=== PATIENT | female | born 1965 | race Caucasian/White ===

== ENCOUNTER → 2024-03-15 12:11 | Outpatient (REF) | payer OTHER, SELFPAY | LOC: HWWDC 12:11 | PROVIDERS: ATTENDING PHYSICIAN Obstetrics & Gynecology; FAMILY PHYSICIAN Internal Medicine | DX: Z12.31 Encounter for screening mammogram for malignant neoplasm of breast (principal) | CPT/HCPCS: 77063; 77067 ==

== ENCOUNTER → 2024-04-28 13:15 | Outpatient (REF) | payer OTHER, SELFPAY | LOC: HWRAD 13:15 | PROVIDERS: ATTENDING PHYSICIAN Internal Medicine Rheumatology; FAMILY PHYSICIAN Internal Medicine | DX: M81.0 Age-related osteoporosis without current pathological fracture (principal) | CPT/HCPCS: 77080 ==

== ENCOUNTER 2025-02-23 08:06 | Emergency (ER) | payer OTHER, SELFPAY ==
[2025-02-23 08:10] VITALS: BP 148/96
[2025-02-23 08:27] VITALS: BP 138/93
--- NOTE | 2025-02-23 08:53 | ED.GENMED ---
History of Present Illness
<Peace Urrutia MD - Last Filed: 02/23/25 11:56>
General
Chief Complaint: Chest Pain
Time Seen by Provider: 02/23/25 08:30
<Imelda Locke DO, Resident - Last Filed: 02/23/25 12:11>
General
Source: patient
Exam Limitations: none
Nursing documentation reviewed up to this point in time: agreed with
History of Present Illness
History of Present Illness:
Patient is a 59 year old female with PMH of ulcerative colitis and HTN, presenting with heart palpitations and chest discomfort that started last night. Patient has been on Inflectra for UC for 10 years. Recently, patient started experiencing muscle
weakness, joint pain and overall soreness. Patient follows with [facility]. Patient stopped Inflectra and started on Medrol dose pack 6 days ago. 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 Patient being worked up for possible
serum sickness vs. drug induced lupus. Last night patient started to have chest discomfort and heart palpitations before bed. Patient describes the chest discomfort as heavy and all over chest. Does not radiate to arms or back. Patient endorses SOB
last night but not now. Patient took 1/2 an Advil this morning and feels like it improved her symptoms. Patient does note that she has been having heart palpitations in the middle of the night for the last 6 months, relieved by urination. Patient
takes lisinopril irregularly, only when she thinks her BP is elevated. Patient takes Xanax at night to sleep.
Past History
<Peace Urrutia MD - Last Filed: 02/23/25 11:56>
Past History
ED Past Surgical History: Other
<Imelda Locke DO, Resident - Last Filed: 02/23/25 12:11>
Past History
ED Past Medical History: HTN and Other (Ulcerative colitis)
ED Past Surgical History: None
Social History
Tobacco: Non-smoker
Alcohol: None
Drug: None
Personal:
Living: with family
Employment: Not employed
Family History
Family History: Other (stroke father)
Review of Systems
<Peace Urrutia MD - Last Filed: 02/23/25 11:56>
Review of Systems
All Other Systems: ROS reviewed and negative except as documented in HPI and ROS
<Imelda Locke DO, Resident - Last Filed: 02/23/25 12:11>
Review of Systems
Allergies reviewed?: Yes
Constitutional: Reports no symptoms
EENT: Reports no symptoms
Respiratory: Reports no symptoms
Cardiac: Reports chest pain and palpitations
ABD/GI: Reports no symptoms
: Reports no symptoms
Musculoskeletal: Reports joint pain, joint swelling, muscle pain and muscle stiffness
Skin: Reports no symptoms
Neurological: Reports no symptoms
Endocrine: Reports no symptoms
Hematologic/Lymphatic: Reports no symptoms
Psychiatric: Reports no symptoms
Phy Exam
<Peace Urrutia MD - Last Filed: 02/23/25 11:56>
Physical Exam
Physical Exam:
Physical Exam
General: no apparent distress, not acutely ill. Patient appears well, comfortable, smiling
Neck: supple. no meningeal signs. normal psoterior pharynx
Heart: s1/s2 regular rate and rhythm, no murmur. equal radial pulses.
Lungs: no acute respiratory distress. clear bilaterally
Abdomen: normal bowel sounds. not tender. no CVAT
Neuro: alert and oriented. no focal neurological deficits
Skin: no rash
Psychiatric: well kept. interactive and cooperative
Extremities: no edema. no calf tenderness. negative homans. good distal pulses
<Imelda Locke DO, Resident - Last Filed: 02/23/25 12:11>
General Physical Exam
General Presentation: well appearing and no apparent distress
General age: appears stated age
General Skin: warm and dry
General Habitus: normal
General Mental: alert
General Hydration: appears well hydrated
Cardiovascular Exam
Cardiovascular Exam: regular rate/rhythm
Heart Sounds: normal
Pulmonary Exam
Pulmonary Exam: lungs clear, no respiratory distress, chest non tender, no crackles, no wheezing and no cough
Oxygen Status: room air
Cough: no cough
Gastrointestinal Exam
Gastrointestinal Exam: normal bowel sounds, non tender and soft
Neurological Exam
Neurological Exam: alert and oriented x3
Scores
<Peace Urrutia MD - Last Filed: 02/23/25 11:56>
Heart Score for Chest Pain Patients
STEMI patient?: No
History: Slightly or Non-Suspicious
ECG: Normal
Age: >45 - <65 years
Risk Factors: 1 or 2 Risk Factors
Troponin: </= Normal Limit
Heart Score for Chest Pain Patients: 2
Heart Score Risk: 2.5% MACE over next 6 weeks
<Imelda Locke DO, Resident - Last Filed: 02/23/25 12:11>
Heart Score for Chest Pain Patients
Heart Score for Chest Pain Patients: 2
Heart Score Risk: 2.5% MACE over next 6 weeks
Course
<Peace Urrutia MD - Last Filed: 02/23/25 11:56>
Orders/Labs/Results
Orders:
Orders
02/23/25 08:07
Electrocardiogram (*1) Urgent
Reason for Study: Chest Pain
EKG- Treatment ONCE
02/23/25 09:33
Complete Blood Count/With Diff Urgent
Comprehensive Metabolic Panel Urgent
Troponin I Urgent
Urinalysis Reflex To Culture Urgent
Date Specimen was Collected: 02/23/25
Time Specimen was Collected: 09:17
Urine Microscopic Reflex Cult Urgent
02/23/25 09:34
D-Dimer Urgent
TSH Reflex To Free T4 Urgent
02/23/25 10:43
CR Chest - 2 Views Urgent
Comment:
Reason For Exam: CP
Abnormal Lab Results
02/23/25 02/23/25
09:33 09:34
RBC 3.96 L 10^6/uL
(4.20-5.40)
Hct 36.5 L %
(37.0-47.0)
MCH 31.1 H pg
(27.0-31.0)
Absolute Lymphs (auto) 4.0 H 10^3/uL
(1.2-3.4)
Absolute Monos (auto) 0.7 H 10^3/uL
(0.1-0.6)
D-Dimer 0.58 H ug/mlFEU
(0.00-0.50)
BUN 20 H mg/dl
(7-17)
Alkaline Phosphatase 29 L U/L
(38-126)
Ur Occult Blood Reflex 1+ A
(Negative)
02/23/25 09:33
02/23/25 09:33
Vital Signs
Initial and Last Documented VS:
Initial Vital Signs
Temp Pulse Resp BP Pulse Ox
97.8 F 58 16 148/96 98
02/23/25 08:10 02/23/25 08:10 02/23/25 08:10 02/23/25 08:10 02/23/25 08:10
Last Documented Vital Signs
Temp Pulse Resp BP Pulse Ox
97.8 F 76 21 135/78 92
02/23/25 08:10 02/23/25 10:45 02/23/25 10:45 02/23/25 10:00 02/23/25 10:45
<Imelda Locke DO, Resident - Last Filed: 02/23/25 12:11>
Orders/Labs/Results
Orders:
Orders
02/23/25 08:07
Electrocardiogram (*1) Urgent
Reason for Study: Chest Pain
EKG- Treatment ONCE
02/23/25 09:33
Complete Blood Count/With Diff Urgent
Comprehensive Metabolic Panel Urgent
Troponin I Urgent
Urinalysis Reflex To Culture Urgent
Date Specimen was Collected: 02/23/25
Time Specimen was Collected: 09:17
Urine Microscopic Reflex Cult Urgent
02/23/25 09:34
D-Dimer Urgent
TSH Reflex To Free T4 Urgent
02/23/25 10:43
CR Chest - 2 Views Urgent
Comment:
Reason For Exam: CP
Abnormal Lab Results
02/23/25 02/23/25
09:33 09:34
RBC 3.96 L 10^6/uL
(4.20-5.40)
Hct 36.5 L %
(37.0-47.0)
MCH 31.1 H pg
(27.0-31.0)
Absolute Lymphs (auto) 4.0 H 10^3/uL
(1.2-3.4)
Absolute Monos (auto) 0.7 H 10^3/uL
(0.1-0.6)
D-Dimer 0.58 H ug/mlFEU
(0.00-0.50)
BUN 20 H mg/dl
(7-17)
Alkaline Phosphatase 29 L U/L
(38-126)
Ur Occult Blood Reflex 1+ A
(Negative)
02/23/25 09:33
02/23/25 09:33
Vital Signs
Initial and Last Documented VS:
Initial Vital Signs
Temp Pulse Resp BP Pulse Ox
97.8 F 58 16 148/96 98
02/23/25 08:10 02/23/25 08:10 02/23/25 08:10 02/23/25 08:10 02/23/25 08:10
Last Documented Vital Signs
Temp Pulse Resp BP Pulse Ox
97.8 F 76 21 135/78 92
02/23/25 08:10 02/23/25 10:45 02/23/25 10:45 02/23/25 10:00 02/23/25 10:45
<Peace Urrutia MD - Last Filed: 02/23/25 11:56>
MDM/Problems Addressed
Differential Diagnosis Includes:
Acute coronary syndrome, pleurisy, PE, pneumonia
MDM/Problems Addressed:
Patient presents with subacute palpitations and acute chest pain
Chronic conditions affecting care: HTN
Acute Exacerbation and/or Progression of Chronic Illness:
Patient is acutely hypertensive, however, she reports she does not take her blood pressure medicine every day. However, overall it is just slightly elevated in the ED. There is no sign clinically of CHF or any neurological abnormalities
Acute Exacerbation and/or Progression of Chronic Illness: HTN
<Peace Urrutia MD - Last Filed: 02/23/25 11:56>
*Radiology
Radiology exam reviewed: preliminary read by ED provider (Chest x-ray reviewed by me. No acute disease)
*EKG
Interpreted by ED Provider?: Yes
Interpretation: normal
Comparison EKG: no changes
Rate: normal
Rhythm: sinus
[place]: left axis deviation
Interval: normal interval
QRS Pattern: normal QRS
Ischemia: no ischemia
*Plastic Sewer Interpretation
Rate: normal
Interpretation: normal
Rhythm: sinus
Data Reviewed
Review of Other/Old Records Reveals: Radiology Studies (Chest x-ray done 2022 shows no acute disease)
Source: patient
<Imelda Locke DO, Resident - Last Filed: 02/23/25 12:11>
*Pulse Oximetry
SaO2: 98
Oxygen Mode of Delivery: Room air
Patient hypoxic: no
*Critical Care Note
Total Time (30-74mins, 75-104mins- exclusive of procedures): Not Applicable
<Peace Urrutia MD - Last Filed: 02/23/25 11:56>
Update Note
Update Note:
Patient's D-dimer is 0.58 which for an age-adjusted 59-year-old, is less than 0.6, which is in normal range for her age
Patient looks extremely well and comfortable. I suspect her pain is musculoskeletal/inflammatory in etiology. There is no sign of tachycardia or heart block. EKG is normal. Troponin is normal therefore it is doubtful to be ACS
ED Attending Note
<Imelda Locke DO, Resident - Last Filed: 02/23/25 12:11>
-
Portions of this chart may have been created with voice recognition software.� Occasional wrong word or��sound alike� substitutions may have occurred due to the inherent limitations of voice recognition software.
Discharge Plan
Departure
Patient Disposition: Home (Routine Discharge)
Date of Disposition: 02/23/25
Time of Disposition: 11:54
Patient with high blood pressure during this ER visit?: Yes
Condition: Good
Covid-19: Not Applicable
Discharge Problem:
Chest pain
Instructions: Chest Pain PCP Follow Up
Prescriptions:
No Action
mesalamine [Canasa] 500 MG suppository
500 mg MD HS
alprazolam 0.5 MG tablet
1 tab PO HS
L.acidoph,paracasei,B.animalis 1 EACH capsule
1 ea PO DAILY
hydrocortisone 1 APPLIC cream
1 applic topical BID PRN (Reason: skin rash)
cholecalciferol (vitamin D3) [Vitamin D3] 400 UNITS tablet
400 units PO DAILY
Referrals:
Leanne Lloyd DO [Family Provider, Internal Medicine]
Activity Restrictions/Additional Instructions:
Follow-up with your reporting analyst as scheduled
Please take 600 mg of Advil every 6-8 hours with food for pain.
Interventions
Interventions:
*Risk Screen - Suicide Last Done: 02/23/25 09:09
*General Assessment Last Done: 02/23/25 09:09
*Neglect/Abuse Screening Last Done: 02/23/25 09:09
*ED- Fall Risk Assessment Last Done: 02/23/25 09:09
*ED COVID-19 Vaccine History Last Done: 02/23/25 09:09
ED- Cardiac Assessment Last Done: 02/23/25 09:09
Discharge Date and Time
Print Language: VIET[place]ESE
[2025-02-23 09:00] VITALS: BP 135/77
[2025-02-23 09:09] VITALS: BMI 24.6
[2025-02-23 09:45] LABS: Hematocrit 36.5 % (37.0-47.0); Hemoglobin 12.3 g/dL (12.0-16.0); Mean Corp Hgb Conc. 33.7 g/dL (33.0-37.0); Mean Corpuscular Volume 92.2 fL (81.0-99.0); Nucleated Red Blood Cells % 0 %; Platelet Count 241 10^3/uL (130-400); Red Cell Dist. Width 12.3 % (11.5-14.5)
[2025-02-23 09:48] LABS: Urine Character Clear (Clear)
[2025-02-23 10:00] VITALS: BP 135/78
[2025-02-23 10:06] LABS: Urine Urothelial Cell 0-2 /LPF (FEW)
[2025-02-23 10:08] LABS: ALT (SGPT) 16 U/L (0-35); AST (SGOT) 15 U/L (14-36); Albumin 4.2 g/dl (3.5-5.0); Alkaline Phosphatase 29 U/L (38-126); Blood Urea Nitrogen 20 mg/dl (7-17); Calcium 9.9 mg/dl (8.4-10.2); Carbon Dioxide 25 mmol/L (22-30); Chloride 107 mmol/L (98-107); Estimated Creatinine Clearance 74 ml/min; Glucose 88 mg/dl (70-99); Potassium 3.8 mmol/L (3.5-5.1); Sodium 138 mmol/L (135-145); Total Protein 6.9 g/dl (6.3-8.2); eGFR > 60.00
[2025-02-23 10:09] LABS: Urine Red Blood Cell 0-2 /HPF (0-2)
[2025-02-23 10:26] LABS: D-Dimer 0.58 ug/mlFEU (0.00-0.50)
[2025-02-23 10:41] LABS: Troponin I < 0.012 ng/ml
[2025-02-23 11:00] VITALS: BP 130/70
== END 2025-02-23 12:39 | disposition home or self-care (01) ==
LOC: EMR 08:06
PROVIDERS: EMERGENCY PHYSICIAN Emergency Medicine; FAMILY PHYSICIAN Internal Medicine
DX: R07.9 Chest pain, unspecified (principal); I10 Essential (primary) hypertension; K51.90 Ulcerative colitis, unspecified, without complications; T46.4X6A Underdosing of angiotensin-converting-enzyme inhibitors, initial encounter; Z91.128 Patient's intentional underdosing of medication regimen for other reason; Z82.3 Family history of stroke
CPT/HCPCS: 99284; 71046; 80053; 81003; 81015; 84443; 84484; 85025; 85379; 93005

== ENCOUNTER → 2025-05-01 13:34 | Outpatient (REF) | payer OTHER, SELFPAY | LOC: WDC 13:34 | PROVIDERS: ATTENDING PHYSICIAN Obstetrics & Gynecology; FAMILY PHYSICIAN Internal Medicine | DX: Z12.31 Encounter for screening mammogram for malignant neoplasm of breast (principal) | CPT/HCPCS: 77063; 77067 ==

== ENCOUNTER 2025-06-18 20:17 | Emergency (ER) | payer OTHER, SELFPAY ==
[2025-06-18 20:19] VITALS: BP 143/89
--- NOTE | 2025-06-18 23:08 | ED.GENMED ---
History of Present Illness
General
Chief Complaint: Back Pain
Source: patient and spouse
Exam Limitations: none
Time Seen by Provider: 06/18/25 22:56
Nursing documentation reviewed up to this point in time: agreed with
History of Present Illness
History of Present Illness:
60-year-old female with past medical history as noted presents to the emergency department for evaluation of back pain. Patient reports that she has been dealing with 'sciatica' off and on chronically. She says that recently symptoms have been
flaring up more than usual with some shooting pains in the back and right leg. She says that today she reached up above her head to take a shower curtain down and shortly thereafter developed severe pain in the right low back that has been
radiating down the right leg. Worse with movement, worse with the leg straight. No relieving factors noted. She denies any weakness or numbness in the legs. She denies any bowel or bladder incontinence. Denies saddle anesthesia. She denies any
other acute complaints.
Past History
Past History
ED Past Medical History: HTN and Other (Ulcerative colitis)
ED Past Surgical History: Other
Social History
Tobacco: Non-smoker
Alcohol: None
Drug: None
Personal:
Living: with family
Employment: Not employed
Family History
Family History: Other (stroke father)
Review of Systems
Review of Systems
All Other Systems: ROS reviewed and negative except as documented in HPI and ROS
Constitutional: Denies fever
Respiratory: Denies trouble breathing
Cardiac: Denies chest pain
ABD/GI: Denies abdominal pain
Musculoskeletal: Reports back pain; Denies neck pain
Neurological: Denies dizzy, headache, weakness or numbness
Phy Exam
Physical Exam
Physical Exam:
General: Awake, alert, oriented x3; appears uncomfortable
Head: Normocephalic, atraumatic
Eyes: Conjunctiva normal
Throat: Airway intact
Neck: Trachea midline, supple without meningismus
Lungs: Breathing comfortably with no distress
Heart: Regular rate
Back: No spinal step-offs, moderate tenderness of the paraspinal region upper lumbar L1-L2; positive straight leg raise right leg
Neuro: Cranial nerves grossly intact, speech fluid; motor and sensory intact distal lower extremities bilaterally
Skin: No rash in the area of concern
Extremities: No edema in extremities, warm and well-perfused
Scores
Heart Failure Risk
Heart Failure Risk Score: Not Applicable
Heart Score for Chest Pain Patients
STEMI patient?: Not applicable
Withdrawal Assessment of Alcohol
Withdrawal Assessment Completed?: Not applicable
Course
Orders/Labs/Results
Orders:
Orders
06/18/25 23:07
Ketorolac [Toradol] 30 mg IM NOW STA
Oxycodone [Roxicodone] 5 mg PO NOW STA
Prednisone [Deltasone] 50 mg PO NOW STA
06/18/25 23:08
CR Lumbar Spine 2 Or 3 Views Urgent
Comment:
Reason For Exam: low back pain
Vital Signs
Initial and Last Documented VS:
Initial Vital Signs
Temp Pulse Resp BP Pulse Ox
36.7 C 79 19 143/89 99
06/18/25 20:19 06/18/25 20:19 06/18/25 20:19 06/18/25 20:19 06/18/25 20:19
Last Documented Vital Signs
Temp Pulse Resp BP Pulse Ox
36.7 C 79 19 143/89 99
06/18/25 20:19 06/18/25 20:19 06/18/25 20:19 06/18/25 20:19 06/18/25 23:08
MDM/Problems Addressed
Differential Diagnosis Includes:
Bulging/herniated disc, degenerative disc disease, less likely fracture, less likely cancer
MDM/Problems Addressed:
60-year-old female presents with acute on chronic low back pain with radicular symptoms down the right leg. Flared up after reaching above her head today. Vitals and exam as above. Her clinical picture is consistent with lumbar
radiculopathy/sciatica. Given her age with no prior imaging will check x-ray lumbar spine. No red flag symptoms or exam findings to suggest cauda equina, no indication for emergent MRI. Will plan to treat symptomatically. Reassess after the
above.
X-ray reviewed by me shows no acute abnormality. Clinical reassessment after medication here patient is still in pain but reports some improvement. She is requesting discharge and will follow-up with orthopedist on an outpatient basis. We spoke
about pain control measures at home. Will prescribe steroid taper. Given that her pain was so severe that it did not respond to Tylenol and ibuprofen will prescribe short prescription of opiates pending follow-up. All questions answered.
*Radiology
Radiology exam reviewed: preliminary read by ED provider
*Pulse Oximetry
SaO2: 99
Oxygen Mode of Delivery: Room air
Patient hypoxic: no (99%)
*Critical Care Note
Total Time (30-74mins, 75-104mins- exclusive of procedures): Not Applicable
Data Reviewed
Source: patient and spouse
ED Attending Note
-
Portions of this chart may have been created with voice recognition software.� Occasional wrong word or��sound alike� substitutions may have occurred due to the inherent limitations of voice recognition software.
Discharge Plan
Departure
Patient Disposition: Home (Routine Discharge)
Date of Disposition: 06/19/25
Time of Disposition: 00:33
Patient with high blood pressure during this ER visit?: Yes
Discharge Problem:
Acute low back pain with sciatica
Instructions: Low Back Pain (DC), Sciatica (DC)
Prescriptions:
New
oxycodone 5 mg tablet
5 mg PO Q6H PRN (Reason: Pain) Qty: 14 0RF
prednisone 10 mg Tablet
See Rx Instructions .ROUTE .COMPLEX Qty: 45 0RF
Rx Instructions:
Take By Mouth:
50 mg daily x3 days, 40 mg daily x3 days,
30 mg daily x3 days, 20 mg daily x3 days,
10 mg daily x3 days
No Action
mesalamine [Canasa] 500 MG suppository
500 mg HI HS
alprazolam 0.5 MG tablet
1 tab PO HS
L.acidoph,paracasei,B.animalis 1 EACH capsule
1 ea PO DAILY
hydrocortisone 1 APPLIC cream
1 applic topical BID PRN (Reason: skin rash)
cholecalciferol (vitamin D3) [Vitamin D3] 400 UNITS tablet
400 units PO DAILY
Referrals:
Leanne Lloyd DO [Family Provider, Internal Medicine]
Garrett Alejandro MD [Active, Orthopedics] - Call in 1-3 days for appt
Activity Restrictions/Additional Instructions:
Thank you for visiting the Emergency Department at [facility].
1. Please schedule a follow up appointment as directed. Call first thing tomorrow morning to make an appointment.
2. If indicated, please take your medications as instructed and indicated on discharge paperwork.
3. If any of your symptoms do not improve, or persist, or become more severe within 6-12 hours, please return to the emergency department for further care.
4. Please return to the emergency department if you develop a headache, neck pain/stiffness, fever greater than 100.4F, chest pain, shortness of breath, persistent nausea, vomiting, slurred speech, difficulty walking, numbness/tingling, weakness,
signs of infection or any other symptoms that are worrisome to you.
Please call [phone] if you have any questions.
Interventions
Interventions:
*Risk Screen - Suicide Last Done: 06/18/25 20:19
*Neglect/Abuse Screening Last Done: 06/18/25 23:21
*ED- Fall Risk Assessment Last Done: 06/18/25 23:21
*ED COVID-19 Vaccine History Last Done: 06/18/25 23:21
*ED Influenza Vaccine History Last Done: 06/18/25 23:21
Discharge Date and Time
Print Language: TANZANIAN
[2025-06-18] MEDS: ROXICODONE 5 MG PO (23:17)
[2025-06-18] MEDS: DELTASONE 50 MG PO (23:17)
[2025-06-18] MEDS: TORADOL 30 MG IM (23:17)
== END 2025-06-19 00:44 | disposition home or self-care (01) ==
LOC: EMR 20:17
PROVIDERS: EMERGENCY PHYSICIAN Emergency Medicine; FAMILY PHYSICIAN Internal Medicine
DX: M54.40 Lumbago with sciatica, unspecified side (principal); I10 Essential (primary) hypertension; K51.90 Ulcerative colitis, unspecified, without complications; Z82.3 Family history of stroke
CPT/HCPCS: 99283; 96372; 72100